=== PATIENT | male | born 1990 | race American Indian/Alaskan Native ===

== ENCOUNTER → 2023-11-24 09:01 | Outpatient (CLI) | payer OTHER, SELFPAY ==
--- NOTE | 2023-11-24 09:08 | DI.RAD.S_ITS ---
PROCEDURE: XR CHEST 2V INDICATIONS: Unspecified asthma, uncomplicated TECHNIQUE: 2 views of the chest were acquired. COMPARISON: None. FINDINGS: Surgical changes and devices: None. Lungs and pleura: There is a rounded nodular density in the right lower lung zone, probably an old granuloma. No pleural effusions or pneumothorax. Mediastinum: Mediastinal contours are normal. Heart size is normal. Bones and chest wall: No suspicious bony abnormalities. Soft tissues appear unremarkable. IMPRESSION: Suspect an old granuloma in the right lower lung zone. Dictated by: Kevin Nunez M.D. on 11/24/2023 at 13:53 Approved by: Kevin Nunez M.D. on 11/24/2023 at 14:17
== END ==
LOC: RAD 09:06
PROVIDERS: Referring Provider Chiropractor; Visit Provider Chiropractor
DX: J45.909 Unspecified asthma, uncomplicated (principal)
CPT/HCPCS: 71046

== ENCOUNTER → 2023-12-26 14:39 | Outpatient (CLI) | payer OTHER, SELFPAY | LOC: RESP 14:41 | PROVIDERS: Referring Provider Chiropractor; Visit Provider Chiropractor | DX: J45.909 Unspecified asthma, uncomplicated (principal) | CPT/HCPCS: 94060 ==